=== PATIENT | male | born 1990 | race Caucasian/White ===

== ENCOUNTER 2020-10-15 15:19 | Emergency (ER) | payer SELFPAY ==
[2020-10-15] MEDS ORDERED: MAG HYDROX/AL HYDROX/SIMETH SUSP 30 ML UDCUP PO ONE (16:30)
[2020-10-15] MEDS ORDERED: METOCLOPRAMIDE HCL ORAL SOLN 10 MG/10 ML UDCUP PO ONE (16:30)
[2020-10-15] MEDS ORDERED: LIDOCAINE 2% VISCOUS SOLN 15 ML UDCUP PO ONE (16:30)
[2020-10-15] MEDS ORDERED: CAPSAICIN 0.025% CREAM 60 GM TP ONE (16:32)
[2020-10-15] MEDS ORDERED: NORMAL SALINE 1000 ML 1,000 ML IV ONE (16:49)
--- NOTE | 2020-10-15 16:49 | ER Document Report ---
ED General - General Chief Complaint: Abdominal Pain Stated Complaint: ABDOMINAL PAIN,VOMITING - HPI Notes: Chief Complaint: Abdominal pain, nausea vomiting Historian: History obtained from patient HPI: This is a 1-year-old male presents to the ER complaining of upper abdominal pain and nausea vomiting x2 days. Says whenever he eats or drinks it worsens his abdominal pain and causes him to vomit or heat forces himself to vomit which will make him feel better. He is able to tolerate sips of liquid. Is also had some mild intermittent diarrhea. denies hematemesis or bloody stools. Denies alcohol or NSAID use. No prior abdominal surgeries. Patient does admit to heavy marijuana use. He also reports that hot showers when the few things that alleviate his symptoms. He denies fever, chills, chest pain, shortness of breath, dysuria, or hematuria. ROS: Constitutional: no fevers. HEENT: no STEWARD, sore throat, or vision changes. CV: no chest pain or palpitations. Resp: no cough or SOB. GI: Positive epigastric pain. Positive nausea vomiting. Positive diarrhea. : no dysuria, hematuria, or incont. MSK: no back pain, no joint swelling/redness. Skin: no rashes or itching. Neuro: no seizures, weakness, numbness, or confusion. Hematological: no ecchymosis or easy bleeding. Endocrine: no polyuria/polydipsia, no heat/cold intolerance. Psych: no SI/HI, AH/VH or memory loss. PMHx: Reviewed and agree as charted by RN. PSHx: Reviewed and agree as charted by RN. SOCHx: Reviewed and agree as charted by RN. FHX: No significant familial comorbid conditions directly related to patient complaint Current Medications: Reviewed and agree with the patient medications as charted by the RN. Allergies: Reviewed and agree with the listed allergies as charted by the RN Physical Exam: Vitals: Reviewed in chart as documented by RN. General: Alert, diaphoretic. Head: Normocephalic; atraumatic Eyes: PERRLA, Conjunctivae clear sclerae non-icteric bilat ENT: no soft palate swelling or uvular deviation Neck: trachea midline, no unilateral swelling/tenderness/lymphadenopathy CV: RRR, no M/R/G; symmetric distal pulses Resp: respirations even and unlabored, CTA bilat. GI: abd soft and nondistended. NTTP. normal BS. no masses/HSM. no CVAT bilat MSK: FROM of all extremities. No midline CTL spine tenderness/deformity Skin: warm, moist, good turgor. no rash/lesions Neuro: Alert and oriented X 4. following CN 2-12 intact. no unilateral weakness/numbness Psych: No SI/HI or AH/VH. ED Results: Medical Decision-Making: Differential includes cyclical vomiting syndrome, PUD, pancreatitis, gastritis, EGD, viral syndrome, electrolyte abnormality, dehydration, esophagitis, cholecystitis, FATUMA, nephrolithiasis diverticulitis, colitis, inflammatory bowel disease, etc. PlanCBC, CMP, lipase, UA, saline lock, normal saline IV bolus. Will give patient a GI cocktail as well as a trial of capsaicin cream. That this may be cyclical vomiting related to THC use considering patient's heavy marijuana use and comment that hot showers relieve symptoms. I had an extensive discussion with patient regarding his marijuana use likely causing his symptoms and that abstinence will likely be the only way to fully resolve this. Patient abdominal exam exam in the ED is benign. She would like to avoid CT scans and I also do not feel this will be beneficial. If patient's work-up is reassuring, will likely discharge him home with capsaicin cream instructions to avoid further marijuana use. Also consider starting patient on a PPI or possible as needed antiemetic. White count 15.7. Likely reactionary from patient's vomiting and discomfort. He is afebrile. Serial abdominal exams benign.. She reports improvement with GI cocktail. No episodes nausea vomiting in the ED. Again offered the patient CT abdomen pelvis for further evaluation of his abdominal pain but he declines. Verbalized that he will return to the immediate the ER immediately if his symptoms worsen. Will DC patient home with a PPI and prescription for Maalox, also started patient to abstain from marijuana use. EP follow-up this week. Diagnosis: abdominal pain, nausea Condition: stable Disposition: discharge - Related Data Allergies/Adverse Reactions: No Known Allergies Allergy (Unverified 10/15/20 16:53) Past Medical History - Social History Smoking Status: Current Every Day Smoker Drug Abuse: Marijuana Family History: Reviewed & Not Pertinent Patient has homicidal ideation: No Physical Exam - Vital signs Vitals: Temp Pulse Resp BP Pulse Ox 98.5 F 79 16 154/99 H 98 10/15/20 15:47 10/15/20 15:47 10/15/20 15:47 10/15/20 15:47 10/15/20 15:47 Course - Vital Signs Vital signs: Temp Pulse Resp BP Pulse Ox 98.5 F 79 16 154/99 H 98 10/15/20 15:47 10/15/20 15:47 10/15/20 15:47 10/15/20 15:47 10/15/20 15:47 - Laboratory Result Diagrams: 10/15/20 16:47 10/15/20 16:47 Laboratory results interpreted by me: 10/15/20 10/15/20 10/15/20 16:47 16:47 17:34 WBC 15.7 H RDW 14.1 H Lymph % (Auto) 10.3 L Absolute Neuts (auto) 12.6 H Absolute Monos (auto) 1.5 H Seg Neutrophils % 79.8 H Glucose 118 H Calcium 10.4 H Albumin 5.1 H Urine Protein 100 H Urine Ketones TRACE H Urine Blood MODERATE H Urine Urobilinogen 2.0 H Ur Leukocyte Esterase MODERATE H Discharge - Discharge Clinical Impression: Abdominal pain, Nausea Condition: Stable Disposition: HOME, SELF-CARE Instructions: Nausea or Vomiting, Nonspecific ([facility]) Additional Instructions: Stop marijuana use as this may be the cause of your symptoms. Plenty of fluids to stay hydrated. Medications as prescribed. Follow-up with your primary care doctor this week for recheck. Return to the ER if your condition worsens Prescriptions: Mag Hydrox/Aluminum Hyd/Simeth [Maalox Maximum Strength Susp] 30 ml PO Q4HP PRN #[id number] oral.susp PRN Reason: Omeprazole Magnesium [Prilosec Otc] 20 mg PO BID #30 tablet.
[2020-10-15 17:32] LABS: ABSOLUTE BASOPHILS # (AUTO) 0.1 10^3/uL (0.0-0.2); ABSOLUTE LYMPHOCYTES (AUTO) 1.6 10^3/uL (0.5-4.7); ABSOLUTE MONOCYTES (AUTO) 1.5 10^3/uL (0.1-1.4); ABSOLUTE NEUT (AUTO) 12.6 10^3/uL (1.7-8.2); BASOPHILS % (AUTO) 0.4 % (0-2); EOSINOPHILS % (AUTO) 0.2 % (0-6); HEMATOCRIT 46.3 % (37.9-51.0); HEMOGLOBIN 15.7 g/dL (13.5-17.0); LYMPHOCYTES % (AUTO) 10.3 % (13-45); MEAN CORPUSCULAR HEMOGLOBIN 29.7 pg (27.0-33.4); MEAN CORPUSCULAR HGB CONC 33.9 g/dL (32.0-36.0); MEAN CORPUSCULAR VOLUME 88 fl (80-97); MONOCYTES % (AUTO) 9.3 % (3-13); PLATELET COUNT 331 10^3/uL (150-450); RED BLOOD COUNT 5.29 10^6/uL (4.35-5.55); RED CELL DISTRIBUTION WIDTH 14.1 % (11.5-14.0); SEGMENTED NEUTROPHILS % (AUTO) 79.8 % (42-78); TOTAL CELLS COUNTED % (AUTO) 100 %; WHITE BLOOD COUNT 15.7 10^3/uL (4.0-10.5)
[2020-10-15 17:52] LABS: ALBUMIN 5.1 g/dL (3.5-5.0); ALKALINE PHOSPHATASE 92 U/L (38-126); ANION GAP 8 (5-19); ASPARTATE AMINO TRANSFERASE 20 U/L (17-59); BILIRUBIN,DIRECT 0.1 mg/dL (0.0-0.4); BILIRUBIN,TOTAL 0.8 mg/dL (0.2-1.3); BLOOD UREA NITROGEN 13 mg/dL (7-20); CALCIUM 10.4 mg/dL (8.4-10.2); CARBON DIOXIDE 30 mmol/L (22-30); CHLORIDE 99 mmol/L (98-107); GLUCOSE 118 mg/dL (75-110); POTASSIUM 4.4 mmol/L (3.6-5.0); TOTAL PROTEIN 8.2 g/dL (6.3-8.2)
[2020-10-15 18:20] LABS: APPEARANCE,URINE SLIGHTLY-CLOUDY; BILIRUBIN,URINE NEGATIVE (NEGATIVE); COLOR,URINE AMBER; GLUCOSE, URINE NEGATIVE (NEGATIVE); KETONES,URINE TRACE mg/dL (NEGATIVE); LEUKOCYTE ESTERASE,URINE MODERATE (NEGATIVE); NITRITE,URINE NEGATIVE (NEGATIVE); PROTEIN,URINE 100 mg/dL (NEGATIVE); URINE SPECIFIC GRAVITY 1.029
[2020-10-15 19:18] VITALS: BP 149/92
== END 2020-10-15 19:18 | disposition home or self-care (01) ==
LOC: ER 15:19
DX: R10.13 Epigastric pain (principal); R11.2 Nausea with vomiting, unspecified; R19.7 Diarrhea, unspecified; F17.200 Nicotine dependence, unspecified, uncomplicated; F12.10 Cannabis abuse, uncomplicated
CPT/HCPCS: 99284; 96360; 36415; 83690; 85025; 80053; 81001; J3490 ×2; J7030